=== PATIENT | female | born 1945 | race Hispanic/Latino ===

== ENCOUNTER 2019-05-22 09:38 | Emergency (ER) | payer OTHER ==
[~2019-05-22] VITALS: Ht 154.9 cm; Wt 64.4 kg
[2019-05-22] MEDS ORDERED: SODIUM CHLORIDE 0.9% 1000ML 1,000 ML IV STA (10:00)
[2019-05-22] MEDS ORDERED: ONDANSETRON HCL INJ 2MG/ML 2ML 2 MG/ML VIAL IV NR (10:30)
[2019-05-22] MEDS ORDERED: SODIUM CHLORIDE 0.9% INJ 50 ML BAG ONE (10:56)
[2019-05-22] MEDS ORDERED: IOPAMIDOL 300MG/ML 100 ML INFUS..BTL IV ONE (10:56)
[2019-05-22 11:01] LABS: BASOPHILS % 0.2 % (0.0-1.0); EOSINOPHILS % 0.1 % (0.0-6.0); HEMATOCRIT 38.6 % (34.2-44.1); LYMPHOCYTES # (AUTO) 0.5 (1.0-3.2); LYMPHOCYTES % 4.3 % (18.0-39.1); MEAN CORPUSCULAR HEMOGLOBIN 28.1 pg (28-32); MEAN CORPUSCULAR HGB CONC 33.7 g/dL (31-35); MEAN CORPUSCULAR VOLUME 83.5 fL (81-99); MONOCYTES # (AUTO) 0.3 (0.2-0.8); MONOCYTES % 2.5 % (4.4-11.3); NEUTROPHILS # (AUTO) 11.5 (2.1-6.9); NEUTROPHILS % 92.5 % (38.7-80.0); PLATELET COUNT 257 x10e3/uL (140-360); RED BLOOD COUNT 4.62 x10e6/uL (3.6-5.1); RED CELL DISTRIBUTION WIDTH 14.4 % (11.7-14.4)
[2019-05-22 11:28] LABS: BILIRUBIN,URINE NEGATIVE (NEGATIVE); CLARITY,URINE CLEAR (CLEAR); COLOR,URINE YELLOW (YELLOW); KETONES,URINE TRACE (NEGATIVE); LEUKOCYTE ESTERASE ,URINE NEGATIVE (NEGATIVE); NITRITE,URINE NEGATIVE (NEGATIVE); PROTEIN,URINE DIPSTICK NEGATIVE (NEGATIVE); URINE UROBILINOGEN 0.2 mg/dL (0.2 - 1)
[2019-05-22 11:33] LABS: ALANINE AMINOTRANSFERASE 29 IU/L (0-55); ALBUMIN/GLOBULIN RATIO 1.1 (0.8-2.0); ALKALINE PHOSPHATASE 90 IU/L (40-150); ANION GAP 15.9 mmol/L (8-16); BLOOD UREA NITROGEN 22 mg/dL (7-26); BUN/CREATININE RATIO 29 (6-25); CALCIUM 9.3 mg/dL (8.4-10.2); CARBON DIOXIDE 22 mmol/L (22-29); CHLORIDE 102 mmol/L (98-107); CREATININE, SERUM 0.75 mg/dL (0.57-1.11); EST GLOMERULAR FILTRATION RATE > 60 ML/MIN (60-); GLUCOSE 125 mg/dL (74-118); LIPASE 15 U/L (8-78); POTASSIUM 3.9 mmol/L (3.5-5.1); SODIUM 136 mmol/L (136-145)
[2019-05-22 11:37] LABS: BACTERIA,URINE FEW /HPF; EPITHELIAL CELLS,URINE FEW /LPF; RBC,URINE 21-50 /HPF (0-5); WBC,URINE (MAN) 0-5 /HPF (0-5)
[2019-05-22 11:38] LABS: YEAST,URINE RARE
--- NOTE | 2019-05-22 13:31 | Diagnostic Imaging Report ---
EXAM: CT Abdomen and Pelvis WITH contrast INDICATION: Nausea, vomiting, diarrhea. COMPARISON: None. TECHNIQUE: Abdomen and pelvis were scanned utilizing a multidetector helical scanner from the lung base to the pubic symphysis after administration of IV contrast. Coronal and sagittal reformations were obtained. Routine protocol was performed. Scan was performed when during portal venous phase. IV CONTRAST: 100 cc of Isovue 370 ORAL CONTRAST: None COMPLICATIONS: None RADIATION DOSE: Total DLP: 427.7 mGy*cm Estimated effective dose: (DLP x 0.015 x size factor) mSv CTDIvol has been reviewed. It is below the limits set by the Radiation Protocol Committee (RPC). FINDINGS: LINES and TUBES: None. LOWER THORAX: There are two solid nodules measuring 5 mm in the right middle lobe. Patchy dependent opacities in the lower lungs, likely atelectasis. HEPATOBILIARY: Diffuse hepatic steatosis. No evidence of focal lesion. No biliary ductal dilation. GALLBLADDER: No radio-opaque stones or sludge. No wall thickening. SPLEEN: No splenomegaly. PANCREAS: No focal masses or ductal dilatation. ADRENALS: No adrenal nodules KIDNEYS/URETERS: Bilateral renal cystic lesions, some of which measure greater than 20 Hounsfield units. For example a right mid pole cyst, measuring up to 1.3 cm. No evidence of hydronephrosis or stone. GI TRACT: No evidence of bowel obstruction. Possible mild wall thickening within jejunal loops which are fluid-filled. The distal colon is decompressed with mild fatty infiltration of the wall, suggestive of prior inflammation. PELVIC ORGANS/BLADDER: Partially calcified 3.0 cm uterine lesion, likely degenerating fibroid. LYMPH NODES: No lymphadenopathy. VESSELS: Scattered mild atherosclerotic calcifications of the abdominal aorta and branch vessels. PERITONEUM / RETROPERITONEUM: No free air or fluid. BONES AND SOFT TISSUES: Bilateral pars defects at L5 with grade 1 anterolisthesis of L5 on S1. Moderate degenerative disc changes at L5-S1. CONCLUSION: Possible mild wall thickening within jejunal loops, which may reflect enteritis in the setting of vomiting. Diffuse hepatic steatosis. Two solid 5 mm nodules in the right middle lobe. Follow-up chest CT is recommended, which may be performed in the nonemergent setting. Bilateral renal cysts, for which follow-up renal ultrasound is recommended. Signed by: Dr. Cristhian Sterling MD on 05/22/2019 1:28 PM
[2019-05-22 14:57] VITALS: BP 105/45
--- OUTSIDE RECORDS SUMMARY | 2019-05-27 12:21 | XMS REPORT ---
Author Author [facility] Address Unknown Phone Unavailable Care Team Providers Care Float Remover Name Role Phone KARLO FOSTER Unavailable Unavailable Aziza LEONE Unavailable Unavailable Problems This patient has no known problems. Allergies, Adverse Reactions, Alerts This patient has no known allergies or adverse reactions. Medications This patient has no known medications. Results Test Description Test Time Test Comments Text Results Atomic Results Result Comments CT ABDOMEN/PELVIS W 2019-05-22 13:19:00 [facility] [address] [address] Patient Name: NANDA GONSALEZ MR #: [id number] : 1945 Age/Sex: 73/F Req #: [id number] Adm Physician: Ordered by: KARLO FOSTER DO Report #: [id number] Location: ER Room/Bed: Procedure: [id number] CT/CT ABDOMEN/PELVIS W Exam Date: 05/22/19 Exam Time: 1214 REPORT STATUS: Signed EXAM: CT Abdomen and Pelvis WITH contrast INDIC ATION: Nausea, vomiting, diarrhea. COMPARISON: None. TECHNIQUE: Abdomen and pelvis were scanned utilizing a multidetector helical scanner from the lung base to the pubic symphysis after administration of IV contrast. Coronal and sagittal reformations were obtained. Routine protocol was performed. Scan was performed when during portal venous phase. IV CONTRAST: 100 cc of Isovue 370 ORAL CONTRAST: None COMPLICATIONS: None RADIATION DOSE: Total DLP: 427.7 mGy*cm Estimated effective dose: (DLP x 0.015 x size factor) mSv CTDIvol has been reviewed. It is below the limits set by the Radiation Protocol Committee (RPC). FINDINGS: LINES and TUBES: None. LOWER THORAX: There are two solid nodules measuring 5 mm in the right middle lobe. Patchy dependent opacities in the lower lungs, likely atelectasis. HEPATOBILIARY: Diffuse hepatic steatosis. No evidence of focal lesion. No biliary ductal dilation. GALLBLADDER: No radio-opaque stones or sludge. No wall thickening. SPLEEN: No splenomegaly. PANCREAS: No focal masses or ductal dilatation. ADRENALS: No adrenal nodules KIDNEYS/URETERS: Bilateral renal cystic lesions, some of which measure greater than 20 Hounsfield units. For example a right mid pole cyst, measuring up to 1.3 cm. No evidence of hydronephrosis or stone. GI TRACT: No evidence of bowel obstruction. Possible mild wall thickening within jejunal loops which are fluid-filled. The distal colon is decompressed with mild fatty infiltration of the wall, suggestive of prior inflammation. PELVIC ORGANS/BLADDER: Partially calcified 3.0 cm uterine lesion, likely degenerating fibroid. LYMPH NODES: No lymphadenopathy. VESSELS: Scattered mild atherosclerotic calcifications of the abdominal aorta and branch vessels. PERITONEUM / RETROPERITONEUM: No free air or fluid. BONES AND SOFT TISSUES: Bilateral pars defects at L5 with grade 1 anterolisthesis of L5 on S1. Moderate degenerative disc changes at L5-S1. CONCLUSION: Possible mild wall thickening within jejunal loops, which may reflect enteritis in the setting of vomiting. Diffuse hepatic steatosis. Two solid 5 mm nodules in the right middle lobe. Follow-up chest CT is recommended, which may be performed in the nonemergent setting. Bilateral renal cysts, for which follow-up renal ultrasound is recommended. Signed by: Dr. Nica Castro MD on 05/22/2019 1:28 PM Dictated By: NICA CASTRO MD [id number] Transcribed By: MARLON on 05/22/19 1328 COPY TO: KARLO FOSTER DO [facility] (PORTABLE) [address] [address] Patient Name: NANDA GONSALEZ MR #: [id number] : 1945 Age/Sex: 71/F Req #: [id number] Adm Physician: Ordered by: SOSA SCHWARTZ NP Report #: [id number] Location: ER Room/Bed: Procedure: [id number] DX/CHEST SINGLE (PORTABLE) Exam Date: 04/08/17 Exam Time: 1250 REPORT STATUS: Signed PROCEDURE: A single AP view of the chest. COMPARISON: None. INDICATIONS: WEAKNESS OF LEFT ARM FINDINGS: Lines/tubes: None. Lungs: The lungs are well inflated and clear. There is no evidence of pneumonia or pulmonary edema. Pleura: There is no pleural effusion or pneumothorax. Heart and mediastinum: The heart and the mediastinum are unremarkable. Atherosclerotic calcifications. Bones: No acute bony abnormality. Degenerative changes of the thoracic spine. IMPRESSION: No acute radiographic abnormality. Dictated by: Be Freitas M.D. on 04/08/2017 at 13:30 Electronically approved by: Be Freitas M.D. on 04/08/2017 at 13:30 Dictated By: BE FREITAS MD 1330 Transcribed By: HANSEL on 04/08/17 1330 COPY TO: SOSA SCHWARTZ NP
== END 2019-05-22 14:55 | disposition home or self-care (01) ==
LOC: ER 09:38
DX: R11.2 Nausea with vomiting, unspecified (principal); R19.7 Diarrhea, unspecified; R91.8 Other nonspecific abnormal finding of lung field; I10 Essential (primary) hypertension; E78.5 Hyperlipidemia, unspecified; N28.1 Cyst of kidney, acquired
CPT/HCPCS: 36415; 74177; 80053; 81001; 83690; 85025; 93005; 99284; J2405; J7030; Q9967

== ENCOUNTER 2021-10-19 11:16 | Emergency (ER) | payer MEDICARE, OTHER ==
[~2021-10-19] VITALS: Ht 149.9 cm; Wt 55.8 kg
[2021-10-19] MEDS ORDERED: IBUPROFEN400 MG PO (11:36)
[2021-10-19] MEDS ORDERED: KETOROLAC TROMETHAMINE 30 MG/ML VIAL IV ONE (11:45)
[2021-10-19] MEDS ORDERED: KETOROLAC TROMETHAMINE 30 MG/ML VIAL ONE (11:47)
[2021-10-19] MEDS ORDERED: ATENOLOL50 MG PO (12:14)
== END 2021-10-19 11:52 | disposition home or self-care (01) ==
LOC: FSED 11:26
DX: N64.4 Mastodynia (principal); I10 Essential (primary) hypertension; E78.5 Hyperlipidemia, unspecified; E78.00 Pure hypercholesterolemia, unspecified
CPT/HCPCS: 93005; 96372; 99283; J1885

== ENCOUNTER 2022-06-22 11:46 | Emergency (ER) | payer MEDICARE ==
[~2022-06-22] VITALS: Ht 152.4 cm; Wt 56.7 kg
[~2022-06-22 11:46] MED LIST: ANTIVERT25 M1 PO; ATENOLOL50 MG PO; IBUPROFEN400 MG PO; ONDANSETRON ODT4 MG PO
[2022-06-22] MEDS ORDERED: SODIUM CHLORIDE 0.9% 500ML 500 ML IV ONE (12:00)
[2022-06-22 12:08] LABS: BASOPHILS % 0.5 % (0.0-1.0); EOSINOPHILS # (AUTO) 0.1 (0.0-0.4); EOSINOPHILS % 0.8 % (0.0-6.0); HEMATOCRIT 38.8 % (34.2-44.1); HEMOGLOBIN 12.2 g/dL (12.0-16.0); LYMPHOCYTES % 29.8 % (18.0-39.1); MEAN CORPUSCULAR HEMOGLOBIN 27.6 pg (28-32); MEAN CORPUSCULAR HGB CONC 31.4 g/dL (31-35); MEAN CORPUSCULAR VOLUME 87.8 fL (81-99); MONOCYTES # (AUTO) 0.5 (0.2-0.8); MONOCYTES % 8.1 % (4.4-11.3); NEUTROPHILS % 60.6 % (38.7-80.0); PLATELET COUNT 273 x10e3/uL (140-360); RED BLOOD COUNT 4.42 x10e6/uL (3.6-5.1); RED CELL DISTRIBUTION WIDTH 14.2 % (11.7-14.4)
[2022-06-22] MEDS ORDERED: MECLIZINE HCL 12.5 MG TAB PO ONE (12:30)
[2022-06-22 12:32] LABS: ALBUMIN 3.8 g/dL (3.5-5.0); ANION GAP 15.2 mmol/L (8-16); CREATININE, SERUM 0.67 mg/dL (0.57-1.11); MAGNESIUM 1.9 MG/DL (1.3-2.1); POTASSIUM 4.2 mmol/L (3.5-5.1)
[2022-06-22 12:38] LABS: CREATINE KINASE MB 1.2 ng/mL (0-5.0)
[2022-06-22] MEDS ORDERED: MECLIZINE HCL12.5 MG PO (13:08)
[2022-06-22 13:16] VITALS: BP 144/60
== END 2022-06-22 13:24 | disposition home or self-care (01) ==
LOC: ER 11:49
DX: R42 Dizziness and giddiness (principal); I10 Essential (primary) hypertension; E78.5 Hyperlipidemia, unspecified; E78.00 Pure hypercholesterolemia, unspecified
CPT/HCPCS: 36415; 80053; 82550; 82553; 83735; 83880; 84484; 85025; 93005; 99283; J7040; J8597

== ENCOUNTER 2022-09-18 09:58 | Emergency (ER) | payer MEDICARE ==
[~2022-09-18] VITALS: Ht 180.3 cm; Wt 56.7 kg
[~2022-09-18 09:58] MED LIST changes: +MECLIZINE HCL12.5 MG PO
[2022-09-18] MEDS ORDERED: MECLIZINE HCL 12.5 MG TAB PO STA (10:53)
[2022-09-18] MEDS ORDERED: DEXAMETHASONE SOD PHOS INJ 4 MG/ML SDV IV STA (10:53)
[2022-09-18 11:13] LABS: BASOPHILS % 0.7 % (0.0-1.0); EOSINOPHILS % 0.3 % (0.0-6.0); HEMATOCRIT 36.8 % (34.2-44.1); HEMOGLOBIN 12.3 g/dL (12.0-16.0); LYMPHOCYTES # (AUTO) 2.4 (1.0-3.2); LYMPHOCYTES % 41.7 % (18.0-39.1); MEAN CORPUSCULAR HGB CONC 33.4 g/dL (31-35); MEAN CORPUSCULAR VOLUME 83.6 fL (81-99); MONOCYTES # (AUTO) 0.4 (0.2-0.8); MONOCYTES % 6.7 % (4.4-11.3); NEUTROPHILS # (AUTO) 2.9 (2.1-6.9); NEUTROPHILS % 50.4 % (38.7-80.0); PLATELET COUNT 276 x10e3/uL (140-360); RED CELL DISTRIBUTION WIDTH 14.2 % (11.7-14.4)
[2022-09-18 11:30] LABS: ALANINE AMINOTRANSFERASE 16 IU/L (0-55); ALBUMIN/GLOBULIN RATIO 1.1 (0.8-2.0); ALKALINE PHOSPHATASE 72 IU/L (40-150); ANION GAP 11.7 mmol/L (8-16); BLOOD UREA NITROGEN 17 mg/dL (7-26); BUN/CREATININE RATIO 24 (6-25); CARBON DIOXIDE 26 mmol/L (22-29); CHLORIDE 105 mmol/L (98-107); CREATINE KINASE 102 IU/L (29-168); GLUCOSE 99 mg/dL (74-118); POTASSIUM 3.7 mmol/L (3.5-5.1); SODIUM 139 mmol/L (136-145)
[2022-09-18] MEDS ORDERED: SODIUM CHLORIDE 0.9% 100 ML ONE (11:58)
[2022-09-18] MEDS ORDERED: IOPAMIDOL 370 MG/ML 100 ML INFUS..BTL INJ ONE (11:58)
[2022-09-18] MEDS ORDERED: PREDNISONE20 MG PO (13:35)
[2022-09-18] MEDS ORDERED: AUGMENTIN 500-1 EACH PO (13:36)
[2022-09-18 13:52] VITALS: BP 126/65
== END 2022-09-18 13:53 | disposition home or self-care (01) ==
LOC: ER 10:03
DX: R42 Dizziness and giddiness (principal); I10 Essential (primary) hypertension; J32.9 Chronic sinusitis, unspecified; E78.5 Hyperlipidemia, unspecified; E78.00 Pure hypercholesterolemia, unspecified; R94.31 Abnormal electrocardiogram [ECG] [EKG]
CPT/HCPCS: 36415; 70496; 70498; 71045; 80048; 80053; 82550; 82553; 83880; 84484; 85025; 93005; 99284; J1100; J7050; J8597; Q9967

== ENCOUNTER 2023-04-03 11:38 | Emergency (ER) | payer MEDICARE ==
[~2023-04-03] VITALS: Ht 180.3 cm; Wt 56.7 kg
[~2023-04-03 11:38] MED LIST changes: +AUGMENTIN 500-1 EACH PO; +BACTRIM DS TAB1 EACH PO; +CEPHALEXIN500 MG PO; +PREDNISONE20 MG PO; +ULTRAM 50MG50 MG PO
[2023-04-03 11:44] VITALS: O2SAT 100
[2023-04-03 15:03] LABS: BASOPHILS % 0.5 % (0.0-1.0); EOSINOPHILS # (AUTO) 0.1 (0.0-0.4); EOSINOPHILS % 0.8 % (0.0-6.0); HEMATOCRIT 35.4 % (34.2-44.1); HEMOGLOBIN 11.9 g/dL (12.0-16.0); LYMPHOCYTES # (AUTO) 1.8 (1.0-3.2); LYMPHOCYTES % 27.2 % (18.0-39.1); MEAN CORPUSCULAR HEMOGLOBIN 27.9 pg (28-32); MEAN CORPUSCULAR HGB CONC 33.6 g/dL (31-35); MEAN CORPUSCULAR VOLUME 83.1 fL (81-99); MONOCYTES # (AUTO) 0.6 (0.2-0.8); MONOCYTES % 9.4 % (4.4-11.3); NEUTROPHILS % 61.8 % (38.7-80.0); PLATELET COUNT 270 x10e3/uL (140-360); RED BLOOD COUNT 4.26 x10e6/uL (3.6-5.1); RED CELL DISTRIBUTION WIDTH 14.6 % (11.7-14.4); WHITE BLOOD COUNT 6.47 x10e3/uL (4.8-10.8)
[2023-04-03 15:21] LABS: ALBUMIN 3.8 g/dL (3.5-5.0); ALBUMIN/GLOBULIN RATIO 0.9 (0.8-2.0); ANION GAP 12.9 mmol/L (8-16); CALCIUM 9.3 mg/dL (8.4-10.2); CREATININE, SERUM 0.67 mg/dL (0.57-1.11); MAGNESIUM 2.2 MG/DL (1.3-2.1); POTASSIUM 3.9 mmol/L (3.5-5.1)
[2023-04-03 17:42] VITALS: BP 113/89; PULSE 74; RESP 18; TEMP 98.4
== END 2023-04-03 16:00 | disposition home or self-care (01) ==
LOC: ER 11:47
DX: R07.9 Chest pain, unspecified (principal); I10 Essential (primary) hypertension; E78.5 Hyperlipidemia, unspecified; E78.00 Pure hypercholesterolemia, unspecified
CPT/HCPCS: 36415; 71045; 80053; 82550; 83735; 84484; 85025; 93005

== ENCOUNTER → 2023-12-24 | Outpatient (REF) | payer MEDICARE ==
[~2023-12-24] MED LIST changes: +MELOXICAM7.5 MG PO
== END ==
LOC: MAMMO 13:21
PROVIDERS: ATTEND Internal Medicine
DX: Z12.31 Encounter for screening mammogram for malignant neoplasm of breast (principal); M81.0 Age-related osteoporosis without current pathological fracture; N95.9 Unspecified menopausal and perimenopausal disorder
CPT/HCPCS: 77067; 77080

== ENCOUNTER 2023-12-28 20:44 | Emergency (ER) | payer MEDICARE ==
[~2023-12-28] VITALS: Ht 152.4 cm; Wt 55.3 kg
[~2023-12-28 20:44] MED LIST changes: -MELOXICAM7.5 MG PO
[2023-12-28 22:19] VITALS: PULSE 79; RESP 16; TEMP 98.3; O2SAT 99
[2023-12-28] MEDS ORDERED: MELOXICAM7.5 MG PO (23:39)
== END 2023-12-29 | disposition home or self-care (01) ==
LOC: ER 22:55
DX: M79.641 Pain in right hand (principal); M13.841 Other specified arthritis, right hand; I10 Essential (primary) hypertension; E78.5 Hyperlipidemia, unspecified; E78.00 Pure hypercholesterolemia, unspecified
CPT/HCPCS: 99283

== ENCOUNTER → 2024-06-03 | Outpatient (REF) | payer MEDICARE ==
[~2024-06-03] MED LIST changes: +MELOXICAM7.5 MG PO
== END ==
LOC: CT 11:59
PROVIDERS: ATTEND Internal Medicine
DX: R76.12 Nonspecific reaction to cell mediated immunity measurement of gamma interferon antigen response without active tuberculosis (principal)
CPT/HCPCS: 71250

== ENCOUNTER 2024-08-19 11:57 | Emergency (ER) | payer MEDICARE ==
[~2024-08-19] VITALS: Ht 180.3 cm; Wt 55.3 kg
[2024-08-19 12:26] VITALS: PULSE 83; RESP 15; TEMP 98.4
[2024-08-19 13:42] LABS: BASOPHILS % 0.6 % (0.0-1.0); EOSINOPHILS % 0.4 % (0.0-6.0); HEMATOCRIT 38.7 % (34.2-44.1); HEMOGLOBIN 12.7 g/dL (12.0-16.0); LYMPHOCYTES # (AUTO) 1.8 (1.0-3.2); LYMPHOCYTES % 33.1 % (18.0-39.1); MEAN CORPUSCULAR HEMOGLOBIN 27.8 pg (28-32); MEAN CORPUSCULAR HGB CONC 32.8 g/dL (31-35); MEAN CORPUSCULAR VOLUME 84.7 fL (81-99); MONOCYTES # (AUTO) 0.7 (0.2-0.8); MONOCYTES % 12.2 % (4.4-11.3); NEUTROPHILS # (AUTO) 2.9 (2.1-6.9); NEUTROPHILS % 53.7 % (38.7-80.0); PLATELET COUNT 294 x10e3/uL (140-360); RED BLOOD COUNT 4.57 x10e6/uL (3.6-5.1); RED CELL DISTRIBUTION WIDTH 14.5 % (11.7-14.4)
[2024-08-19 13:53] LABS: INR 0.88; PROTHROMBIN TIME 12.5 seconds (11.9-14.5)
[2024-08-19 13:54] LABS: PARTIAL THROMBOPLASTIN TIME 34.3 seconds (23.8-35.5)
[2024-08-19 14:01] LABS: ALBUMIN 4.2 g/dL (3.5-5.0); ALBUMIN/GLOBULIN RATIO 1.1 (0.8-2.0); ANION GAP 13.9 mmol/L (8-16); BILIRUBIN,TOTAL 0.5 mg/dL (0.2-1.2); CALCIUM 9.1 mg/dL (8.4-10.2); CREATININE, SERUM 0.69 mg/dL (0.57-1.11); POTASSIUM 3.9 mmol/L (3.5-5.1); TOTAL PROTEIN 7.9 g/dL (6.5-8.1)
[2024-08-19 14:05] LABS: BILIRUBIN,URINE NEGATIVE (NEGATIVE); CLARITY,URINE CLEAR (CLEAR); COLOR,URINE YELLOW (YELLOW); GLUCOSE, URINE NEGATIVE (NEGATIVE); KETONES,URINE NEGATIVE (NEGATIVE); LEUKOCYTE ESTERASE ,URINE NEGATIVE (NEGATIVE); NITRITE,URINE NEGATIVE (NEGATIVE); PH,URINE 5.5 (5 - 7); PROTEIN,URINE DIPSTICK TRACE (NEGATIVE); URINE UROBILINOGEN 0.2 mg/dL (0.2 - 1)
[2024-08-19] MEDS: ONDANSETRON HCL INJ 2MG/ML 2ML 2 MG/ML VIAL IV STA (14:08)
[2024-08-19] MEDS: SODIUM CHLORIDE 0.9% 1000ML 1,000 ML IV STA (14:08)
[2024-08-19] MEDS: Morphine 2mg Syringe 2 MG/ML SYR IV STA (14:08)
[2024-08-19 14:14] LABS: BACTERIA,URINE FEW /HPF; EPITHELIAL CELLS,URINE RARE /LPF; WBC,URINE (MAN) 0-5 /HPF (0-5)
[2024-08-19 14:15] LABS: YEAST,URINE FEW
[2024-08-19] MEDS ORDERED: IOPAMIDOL 370 MG/ML 100 ML INFUS..BTL INJ ONE (14:24)
[2024-08-19 16:43] VITALS: BP 127/74; PULSE 68; RESP 18; TEMP 98.6; O2SAT 98
== END 2024-08-19 16:46 | disposition home or self-care (01) ==
LOC: ER 12:31
DX: R10.32 Left lower quadrant pain (principal); R91.8 Other nonspecific abnormal finding of lung field; I10 Essential (primary) hypertension; E78.5 Hyperlipidemia, unspecified; E78.00 Pure hypercholesterolemia, unspecified; M19.09 Primary osteoarthritis, other specified site
CPT/HCPCS: 36415; 74177; 80053; 81001; 85025; 85610; 85730; 99284; J2270; J2405; Q9967

== ENCOUNTER 2024-08-21 07:04 | Emergency (ER) | payer MEDICARE ==
[~2024-08-21] VITALS: Ht 180.3 cm; Wt 55.3 kg
[2024-08-21 07:09] VITALS: PULSE 95; RESP 18; TEMP 98.3
[2024-08-21 07:51] LABS: CLARITY,URINE CLEAR (CLEAR); COLOR,URINE YELLOW (YELLOW); PH,URINE 8.5 (5 - 7)
[2024-08-21 07:52] LABS: BACTERIA,URINE FEW /HPF; BILIRUBIN,URINE NEGATIVE (NEGATIVE); EPITHELIAL CELLS,URINE FEW /LPF; GLUCOSE, URINE NEGATIVE (NEGATIVE); KETONES,URINE 1+ (NEGATIVE); LEUKOCYTE ESTERASE ,URINE NEGATIVE (NEGATIVE); NITRITE,URINE NEGATIVE (NEGATIVE); PROTEIN,URINE DIPSTICK NEGATIVE (NEGATIVE); RBC,URINE >50 /HPF (0-5); URINE UROBILINOGEN 0.2 mg/dL (0.2 - 1); WBC,URINE (MAN) 0-5 /HPF (0-5)
[2024-08-21] MEDS: DICYCLOMINE HCL 20 MG/2 ML VIAL IM ONE (08:04)
[2024-08-21] MEDS ORDERED: LEVSIN-SL0.125 MG SL (09:59)
[2024-08-21 10:32] VITALS: BP 138/68; PULSE 74; RESP 16; TEMP 98.6; O2SAT 98
== END 2024-08-21 10:35 | disposition home or self-care (01) ==
LOC: ER 07:06
DX: R10.30 Lower abdominal pain, unspecified (principal); K59.00 Constipation, unspecified; R31.29 Other microscopic hematuria; I10 Essential (primary) hypertension; E78.5 Hyperlipidemia, unspecified; E78.00 Pure hypercholesterolemia, unspecified; M19.09 Primary osteoarthritis, other specified site
CPT/HCPCS: 74019; 74176; 81001; 99283; J0500

== ENCOUNTER 2024-09-03 11:31 | Emergency (ER) | payer MEDICARE ==
[~2024-09-03] VITALS: Ht 154.9 cm; Wt 55.3 kg
[~2024-09-03 11:31] MED LIST changes: +LEVSIN-SL0.125 MG SL
[2024-09-03 12:01] LABS: BASOPHILS % 0.4 % (0.0-1.0); EOSINOPHILS % 0.4 % (0.0-6.0); HEMATOCRIT 35.7 % (34.2-44.1); HEMOGLOBIN 11.8 g/dL (12.0-16.0); LYMPHOCYTES # (AUTO) 1.2 (1.0-3.2); LYMPHOCYTES % 22.3 % (18.0-39.1); MEAN CORPUSCULAR HEMOGLOBIN 27.8 pg (28-32); MEAN CORPUSCULAR HGB CONC 33.1 g/dL (31-35); MEAN CORPUSCULAR VOLUME 84.2 fL (81-99); MONOCYTES # (AUTO) 0.4 (0.2-0.8); NEUTROPHILS # (AUTO) 3.7 (2.1-6.9); NEUTROPHILS % 69.5 % (38.7-80.0); PLATELET COUNT 298 x10e3/uL (140-360); RED BLOOD COUNT 4.24 x10e6/uL (3.6-5.1); RED CELL DISTRIBUTION WIDTH 14.8 % (11.7-14.4); WHITE BLOOD COUNT 5.28 x10e3/uL (4.8-10.8)
[2024-09-03 12:29] LABS: ALBUMIN 3.9 g/dL (3.5-5.0); ALBUMIN/GLOBULIN RATIO 1.2 (0.8-2.0); ANION GAP 14.1 mmol/L (8-16); BILIRUBIN,TOTAL 0.5 mg/dL (0.2-1.2); CALCIUM 8.6 mg/dL (8.4-10.2); CREATININE, SERUM 0.63 mg/dL (0.57-1.11); POTASSIUM 4.1 mmol/L (3.5-5.1); TOTAL PROTEIN 7.2 g/dL (6.5-8.1)
[2024-09-03] MEDS: MECLIZINE HCL 12.5 MG TAB PO ONE (13:15)
[2024-09-03] MEDS: SODIUM CHLORIDE 0.9% 1000ML 1,000 ML IV SCH (13:15)
[2024-09-03] MEDS: ONDANSETRON HCL INJ 2MG/ML 2ML 2 MG/ML VIAL IV STA (13:15)
[2024-09-03 14:02] VITALS: PULSE 89; RESP 18; TEMP 98.3
[2024-09-03 14:05] LABS: BILIRUBIN,URINE NEGATIVE (NEGATIVE); CLARITY,URINE CLEAR (CLEAR); COLOR,URINE YELLOW (YELLOW); GLUCOSE, URINE NEGATIVE (NEGATIVE); KETONES,URINE NEGATIVE (NEGATIVE); LEUKOCYTE ESTERASE ,URINE NEGATIVE (NEGATIVE); NITRITE,URINE NEGATIVE (NEGATIVE); PH,URINE 7 (5 - 7); PROTEIN,URINE DIPSTICK NEGATIVE (NEGATIVE); URINE UROBILINOGEN 0.2 mg/dL (0.2 - 1)
[2024-09-03 14:09] LABS: EPITHELIAL CELLS,URINE FEW /LPF
[2024-09-03 14:10] LABS: MUCUS,URINE FEW
[2024-09-03] MEDS ORDERED: MECLIZINE HCL12.5 MG PO (14:26)
[2024-09-03 14:56] VITALS: BP 132/74; PULSE 74; RESP 18; TEMP 98.6; O2SAT 98
== END 2024-09-03 15:11 | disposition home or self-care (01) ==
LOC: ER 11:58
DX: R42 Dizziness and giddiness (principal); R11.0 Nausea; I10 Essential (primary) hypertension; E78.5 Hyperlipidemia, unspecified; R94.31 Abnormal electrocardiogram [ECG] [EKG]
CPT/HCPCS: 36415; 70450; 80053; 81001; 84484; 85025; 93005; 99284; J2405; J7030; J8597

== ENCOUNTER 2025-02-21 22:18 | Emergency (ER) | payer MEDICARE ==
[~2025-02-21] VITALS: Ht 154.9 cm; Wt 55.3 kg
[2025-02-21 23:16] LABS: BASOPHILS % 0.4 % (0.0-1.0); EOSINOPHILS % 0.6 % (0.0-6.0); LYMPHOCYTES % 11.8 % (18.0-39.1); MONOCYTES % 6.6 % (4.4-11.3); NEUTROPHILS % 80.3 % (38.7-80.0); RED CELL DISTRIBUTION WIDTH 14.7 % (11.7-14.4)
[2025-02-21 23:22] LABS: LEUKOCYTE ESTERASE ,URINE NEGATIVE (NEGATIVE); PROTEIN,URINE DIPSTICK NEGATIVE (NEGATIVE); URINE UROBILINOGEN 0.2 mg/dL (0.2 - 1)
[2025-02-21 23:31] LABS: EST GLOMERULAR FILTRATION RATE 91 ML/MIN (>=60)
[2025-02-21 23:33] LABS: EPITHELIAL CELLS,URINE FEW /LPF
[2025-02-21] MEDS: Morphine 4mg INJECTION 4 MG/ML INJ IV STA (23:40)
[2025-02-21] MEDS: LIDOCAINE VISC 2% SOLN 15 ML UDC PO STA (23:41)
[2025-02-21] MEDS: BELLADONNA ALK/PHENOBARBITAL 5 ML UDC PO ONE (23:41)
[2025-02-21] MEDS: ONDANSETRON HCL INJ 2MG/ML 2ML 2 MG/ML VIAL IV STA (23:41)
[2025-02-21] MEDS: SODIUM CHLORIDE 0.9% 1000ML 1,000 ML IV STA (23:41)
[2025-02-21] MEDS: MAGNESIUM/ALUMINUM/SIMETHICONE 30 ML UDC PO STA (23:41)
[2025-02-22 00:10] VITALS: TEMP 98.1
[2025-02-22] MEDS ORDERED: IOPAMIDOL 370 MG/ML 100 ML INFUS..BTL INJ ONE (00:38)
[2025-02-22 01:15] VITALS: PULSE 98; RESP 16
[2025-02-22] MEDS ORDERED: ONDANSETRON HCL INJ 2MG/ML 2ML 2 MG/ML VIAL IV PRN (01:15)
[2025-02-22] MEDS ORDERED: SODIUM CHLORIDE 0.9% 1000ML 1,000 ML IV SCH (01:15)
[2025-02-22] MEDS ORDERED: Morphine 4mg INJECTION 4 MG/ML INJ IV PRN (01:15)
[2025-02-22] MEDS ORDERED: AMOX TR-K CLV1 EAC2 PO (01:22)
[2025-02-22 01:40] VITALS: BP 131/67; PULSE 98; RESP 16; O2SAT 96
== END 2025-02-22 01:39 | disposition home or self-care (01) ==
LOC: ER 22:23
DX: R10.13 Epigastric pain (principal); K56.609 Unspecified intestinal obstruction, unspecified as to partial versus complete obstruction; I10 Essential (primary) hypertension; E78.5 Hyperlipidemia, unspecified; M19.09 Primary osteoarthritis, other specified site
CPT/HCPCS: 36415; 74177; 80053; 81001; 82550; 83690; 84484; 85025; 93005; 99284; J2270; J2405; J7030; Q9967